=== PATIENT | female | born 1960 | race Caucasian/White ===

== ENCOUNTER → 2017-04-25 | Outpatient (CLI) | payer OTHER ==
[~2017-04-25] MED LIST: ALBU90OI INH; ALBU90OI6 INH; FAMO20 PO; HYDHCL25 PO; PRED10 PO; PRED20 PO; TRIA80TC TOP
[2017-04-27 14:45] LABS: HPV Genotype 16 Not Detected (NOTDET); HPV Genotype 18 Not Detected (NOTDET)
[2017-05-04 10:23] LABS: HPV High Risk Other Not Detected (NOTDET)
== END ==
LOC: LAB 14:31
PROVIDERS: Nurse Practitioner Family
DX: Z12.4 Encounter for screening for malignant neoplasm of cervix (principal)
CPT/HCPCS: 87624; G0145

== ENCOUNTER 2020-11-25 06:51 | Day surgery (SDC) | payer OTHER ==
[~2020-11-25] VITALS: Ht 157.5 cm; Wt 54.9 kg
[~2020-11-25 06:51] MED LIST changes: +Chantix1 MG; +NICOTINE1 EAC1 TOP
--- NOTE | 2020-11-25 07:05 | NUR ---
History, Chart, Medications and Allergies reviewed before start of procedure. Patient confirms NPO status and agrees with scheduled surgery. Patient States Post-Procedure ride home has been arranged with her step-daughter, Manda. Reports taking all but "one cup" of colon prep with clear results.
--- NOTE | 2020-11-25 07:57 | NUR ---
11/25/20 0757 ZoëYarely Ernesto History, Chart, Medications and Allergies reviewed before start of procedure.MONITOR INTACT WITH CONTINUOUS PULSE OXIMETRY AND INTERMITTENT BP.3-LEAD EKG REVIEWED WITH PHYSICIAN PRIOR TO START OF PROCEDURE.O2 VIA N/C INTACT THROUGHOUT SEDATION/PROCEDURE. PATIENT DETERMINED TO BE ASA APPROPRIATE FOR PROPOFOL SEDATION PRIOR TO START OF PROCEDURE BY
--- NOTE | 2020-11-25 08:27 | NUR ---
INTO STEP VSS WAKING UP
--- NOTE | 2020-11-25 08:42 | NUR ---
Discharge instructions reviewed with patient. Patient verbalizes understanding. Copy given to patient to take home. Patient States Post-Procedure ride home has been arranged. Discharged via wheelchair to private car for ride home.
== END 2020-11-25 23:13 | disposition home or self-care (01) ==
LOC: ORSCMMR 06:51 → ORD 08:00 → ORSCMMR 08:00
PROVIDERS: Internal Medicine Gastroenterology
PROC: 0DBK8ZX Excision of Ascending Colon, Via Natural or Artificial Opening Endoscopic, Diagnostic (ICD-10-PCS; principal; 2020-11-25 08:00)
DX: Z12.11 Encounter for screening for malignant neoplasm of colon (principal); D12.2 Benign neoplasm of ascending colon; K63.5 Polyp of colon; F17.210 Nicotine dependence, cigarettes, uncomplicated; Z79.899 Other long term (current) drug therapy
CPT/HCPCS: 88305; J2704; J7120